=== PATIENT | female | born 1940 | race Caucasian/White ===

== ENCOUNTER 2017-11-26 12:13 | Observation (INO) ==
[~2017-11-26 12:13] MED LIST: Lidocaine 1%/Epinephrine 1:100,000 Inj 30 ML Vial ONE
[2017-11-26] MEDS ORDERED: Clindamycin 600 mg/NS Premix 600 MG/50 ML PIGGYBACK IV.SIG PRN (13:09)
[2017-11-26] MEDS ORDERED: Metoprolol Tartrate 25 MG Tablet PO SCH (13:15)
[2017-11-26] MEDS ORDERED: Chlorhexidine Gluconate 2% 1 Pack (2 Cloths) TOPICAL SCH (13:15)
[2017-11-26] MEDS ORDERED: Sodium Chlor 0.9% Inj 500 ML IV.SIG SCH (14:00)
[2017-11-26] MEDS ORDERED: fentaNYL Citrate Inj 100 MCG/2 ML Ampul ONE (14:29)
[2017-11-26] MEDS ORDERED: Morphine Inj 4 MG/ML Vial ONE (15:15)
[2017-11-26] MEDS ORDERED: HYDROmorphone PF Inj 0.5 MG/0.5 ML Syringe ONE ×2 (15:19→15:28)
[2017-11-26] MEDS ORDERED: Labetalol HCl Inj 100 MG/20 ML Vial ONE (15:24)
--- NOTE | 2017-11-26 15:44 | ECG ---
Date Performed: 11/26/2017 Time Performed: 14:00:27 PTAGE: 76 years EKG: Sinus rhythm NORMAL ECG NO PREVIOUS TRACING DOCTOR: Latanya Contreras Interpretating Date/Time 11/26/2017 15:43:01
[2017-11-26] MEDS: Clindamycin 600 mg/NS Premix 600 MG/50 ML PIGGYBACK IV.SIG SCH (20:45)
[2017-11-27] MEDS: Clindamycin 600 mg/NS Premix 600 MG/50 ML PIGGYBACK IV.SIG SCH (04:46)
[2017-11-27 10:32] VITALS: TEMP 97.5
[2017-11-27] MEDS ORDERED: Phenylephrine/NS 1000 MCG/10ML Syringe IV.PUSH ONE (13:29)
[2017-11-27] MEDS ORDERED: NEOSTIGMINE IV.PUSH ONE (13:29)
[2017-11-27] MEDS ORDERED: Lidocaine PF 1% Inj 5 ML Syringe INFILTRATN ONE (13:29)
[2017-11-27 15:47] VITALS: BP 131/90; PULSE 79; RESP 17; O2SAT 97
--- NOTE | 2017-12-02 10:47 | MP ---
cc: Jayce Durant MD DATE OF OPERATION: 11/26/2017 SURGEON: Jayce Durant MD PREOPERATIVE DIAGNOSES: 1. Nasal airway obstruction. 2. Nasal septal deviation. 3. Hypertrophy of inferior turbinates. 4. Neoplasm of uncertain behavior, left posterior nasal vault. OPERATIONS PERFORMED: 1. Septoplasty. 2. Bilateral submucosal resection of inferior turbinates. 3. Excision of left posterior nasal vault lesion. INDICATIONS: Sapphire Slade is a 76-year-old woman, who complains of nasal airway obstruction. Fiberoptic examination showed severe leftward deviation of the septum obscuring access to the posterior left nasal vault. Endoscopy on the right side revealed malignant-appearing soft tissue extending into the nasopharynx from the left side and nasal vault. DESCRIPTION OF PROCEDURE: The patient was taken to OR #2, and placed in the supine position. Following induction of general anesthesia and intubation, the nose was packed bilaterally with cotton pledgets saturated in 0.05% oxymetazoline. The nasal septal mucosa and inferior turbinates were injected with a total of 6 mL of 1% Xylocaine with epinephrine 1:100,000. She was then prepped and draped for surgery. A hemitransfixion incision was made in the left nasal vestibule and through this incision, the septal mucosa was elevated bilaterally as far as the junction of the bony and cartilaginous septum. This gave an end-on view of the quadrangular cartilage, which showed a severe leftward deviation with a spur impinging on the left lateral nasal wall. Accumulative area of 2 x 2.5 cm was removed, preserving 1.5 cm dorsal and caudal cartilaginous struts. When this was completed, the mucosa was elevated from the remainder of the bony septum, and the bony septum and maxillary crest were removed using Eliseo-Rosangela forceps. This gave access to the posterior nasal vault. 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 This was removed as a biopsy, and the mucosal defect was then cauterized using suction Bovie at 45 jones. The anterior end of the inferior turbinate was then opened along its inferior surface, and several incisions were made along the inferior surface of the right inferior turbinate. Through these incisions, the submucosal tissue was reduced using a curette, and preserving the conchal bone. Incisions were then cauterized using the suction Bovie at 45 jones, and the remnants of the inferior turbinates were then relateralized to the lateral nasal wall. The nose was then packed with Merocel tampons coated in bacitracin ointment, and the procedure was terminated. The patient was reversed from anesthesia and taken to recovery in good condition. COMPLICATIONS: None. ESTIMATED BLOOD LOSS: 60 mL. MD CATHERINE Rachel/rh , 08:18 AM , 08:26 AM
== END 2017-11-27 13:30 | disposition home or self-care (01) ==
LOC: PHSDC 12:13 → PH3 12:13 → PHSDC 16:33
PROVIDERS: ADMIT Otolaryngology; ATTEND Otolaryngology
DX: D37.05 Neoplasm of uncertain behavior of pharynx; J34.3 Hypertrophy of nasal turbinates; J34.2 Deviated nasal septum; E78.5 Hyperlipidemia, unspecified; I10 Essential (primary) hypertension